=== PATIENT | female | born 2000 | race Caucasian/White ===

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

== ENCOUNTER 2022-07-18 00:19 | Inpatient (IN) | payer BC ==
[2022-07-18] MEDS ORDERED: Misoprostol 200 MCG Tab PO PRN (01:21)
[2022-07-18] MEDS ORDERED: Water For Irrigation,Sterile 1,000 ML Container IRR PRN (01:21)
[2022-07-18] MEDS ORDERED: Ondansetron 4 MG/2 ML SDV IVPUSH PRN (01:21)
[2022-07-18] MEDS ORDERED: Methylergonovine 0.2 MG/1 ML Amp IM PRN ×2 (01:21→21:49)
[2022-07-18] MEDS ORDERED: Sodium Chloride 0.9% 10 ML Syringe FLUSH PRN (01:21)
[2022-07-18] MEDS ORDERED: Carboprost Tromethamine 250 MCG/1 mL Vial IM PRN ×2 (01:21→21:49)
[2022-07-18] MEDS ORDERED: Lidocaine 1% 50 ML MDV INJECT PRN (01:21)
[2022-07-18] MEDS ORDERED: Tranexamic Acid 1,000 MG in Sodium Chloride 0.9% 100 ML IV PRN (01:21)
[2022-07-18] MEDS ORDERED: Oxytocin/0.9 % Sodium Chloride 30 UNIT/500 ML BAG IV SCH ×2 (01:30→05:00)
[2022-07-18] MEDS: Lactated Ringers 1,000 ML IV SCH ×4 (01:45→18:00)
[2022-07-18 02:19] LABS: HEMATOCRIT 32.4 % (36.0-46.0); HEMOGLOBIN 9.9 g/dL (12.0-16.0); MEAN CORPUSCULAR HEMOGLOBIN 23.5 pg (27.0-32.0); MEAN CORPUSCULAR HGB CONC 30.6 g/dL (31.0-37.0); MEAN CORPUSCULAR VOLUME 76.8 fL (80.0-98.0); MEAN PLATELET VOLUME 10.4 fL (7.40-12.00); RED BLOOD CELL COUNT 4.22 M/uL (4.30-5.90); WHITE BLOOD CELL COUNT,WBC 10.59 K/uL (4.0-11.0)
[2022-07-18] MEDS: Butorphanol 1 MG/ML SDV IVPUSH PRN ×2 (09:36→10:36)
[2022-07-18] MEDS ORDERED: ePHEDrine 50 MG/ML SDV IVPUSH PRN ×2 (10:29)
[2022-07-18] MEDS ORDERED: Phenylephrine HCl 0.5 MG/5 ML AMP IVPUSH PRN (10:29)
[2022-07-18] MEDS ORDERED: Ropivacaine HCl/PF 400 MG in Premix Bag 1 BAG EPIDUR SCH (10:30)
[2022-07-18] MEDS ORDERED: Dexmedetomidine 200 MCG/2 ML SDV ONE (10:41)
[2022-07-18] MEDS ORDERED: Lidocaine 2% with EPINEPHrine 1:200,000 20 ML SDV ONE (11:03)
[2022-07-18] MEDS ORDERED: Ampicillin 2 GM in Sodium Chloride 0.9% 100 ML IV ONE ×2 (19:32→22:00)
[2022-07-18] MEDS ORDERED: Acetaminophen 500 MG Tab PO PRN ×2 (19:59→21:49)
[2022-07-18] MEDS: Docusate Sodium 100 MG Cap PO PRN (21:45)
[2022-07-18] MEDS ORDERED: Ibuprofen 400 MG Tab PO PRN (21:49)
[2022-07-18] MEDS ORDERED: Lanolin 100% Cream 7 GM Tube TOP PRN (21:49)
[2022-07-18] MEDS ORDERED: Misoprostol 200 MCG Tab RECTAL PRN (21:49)
[2022-07-18] MEDS ORDERED: Benzocaine/Menthol 20%-0.5% Spray 78 GM Cannister TOP PRN (21:49)
[2022-07-18] MEDS ORDERED: Bisacodyl 10 MG Supp RECTAL PRN (21:49)
[2022-07-18] MEDS: Ibuprofen 800 MG Tab PO PRN (22:00)
[2022-07-18 22:24] LABS: PH,UMBILICAL ARTERIAL 7.163 (7.18-7.38); PH,UMBILICAL VENOUS 7.281 (7.25-7.45)
[2022-07-18] MEDS ORDERED: oxyCODONE 5 MG Tab PO ONE (22:51)
[2022-07-18] MEDS ORDERED: oxyCODONE 5 MG Tab ONE (22:55)
[2022-07-19] MEDS: Witch Hazel Medicated Pads 40/Jar TOP PRN (01:01)
[2022-07-19] MEDS: Ampicillin 1 GM in Sodium Chloride 0.9% 50 ML IV SCH ×5 (03:39→20:02)
[2022-07-19] MEDS: Ibuprofen 800 MG Tab PO PRN ×3 (04:11→23:06)
[2022-07-19 06:02] LABS: HEMATOCRIT 26.4 % (36.0-46.0); HEMOGLOBIN 8.1 g/dL (12.0-16.0)
[2022-07-19] MEDS ORDERED: Prenatal Multivitamin with Calcium/Folic Acid/Iron Tab PO SCH (09:00)
[2022-07-19] MEDS: Acetaminophen 500 MG Tab PO PRN ×2 (12:48→23:07)
[2022-07-19] MEDS ORDERED: oxyCODONE 5 MG Tab ONE (23:53)
[2022-07-20] MEDS: oxyCODONE 5 MG Tab PO PRN ×2 (00:45→20:26)
[2022-07-20] MEDS: Ibuprofen 800 MG Tab PO PRN ×2 (05:53→20:27)
[2022-07-20] MEDS: Acetaminophen 500 MG Tab PO PRN ×3 (05:53→16:36)
[2022-07-20] MEDS: Docusate Sodium 100 MG Cap PO PRN (09:35)
[2022-07-20] MEDS: Witch Hazel Medicated Pads 40/Jar TOP PRN (12:28)
[2022-07-20 23:36] VITALS: BP 120/77; PULSE 95
== END 2022-07-20 21:00 | disposition home or self-care (01) | DRG 560 ==
LOC: MW.OBCHECK 00:19 → MW.OB 00:20 → MW.OBCHECK 00:20 → MW.OB 00:39 → OBSVTOIN 21:15 → MW.OB 07-19 01:31
PROVIDERS: ADMIT Obstetrics & Gynecology; ATTEND Obstetrics & Gynecology
PROC: 10E0XZZ Delivery of Products of Conception, External Approach (ICD-10-PCS; principal; 2022-07-18)
PROC: 0KQM0ZZ Repair Perineum Muscle, Open Approach (ICD-10-PCS; 2022-07-18)
PROC: 3E0R3BZ Introduction of Anesthetic Agent into Spinal Canal, Percutaneous Approach (ICD-10-PCS; 2022-07-18)
PROC: 00HU33Z Insertion of Infusion Device into Spinal Canal, Percutaneous Approach (ICD-10-PCS; 2022-07-18)
DX: O42.02 Full-term premature rupture of membranes, onset of labor within 24 hours of rupture (principal); O75.89 Other specified complications of labor and delivery; O76 Abnormality in fetal heart rate and rhythm complicating labor and delivery; O41.1230 Chorioamnionitis, third trimester, not applicable or unspecified; O70.1 Second degree perineal laceration during delivery; Z37.0 Single live birth; Z3A.39 39 weeks gestation of pregnancy
CPT/HCPCS: 36415; 51702; 59025; 59409; 59414; 80170; 82803; 85014; 85018; 85027; 86592; 86850; 86900; 86901; A9270-GY; J0290; J0595; J1580; J2210; J2590; J3490; J7120